=== PATIENT | male | born 1965 | race Caucasian/White ===

== ENCOUNTER → 2020-07-01 | Outpatient (CLI) | payer BC | END | disposition home or self-care (01) | LOC: RAD 11:40 | PROVIDERS: ATTEND Orthopaedic Surgery Orthopaedic Surgery of the Spine | DX: M51.17 Intervertebral disc disorders with radiculopathy, lumbosacral region (principal); M48.07 Spinal stenosis, lumbosacral region | CPT/HCPCS: 72110; 72148 ==

== ENCOUNTER → 2020-07-06 | Outpatient (CLI) | payer BC ==
[2020-07-06 14:29] LABS: ALBUMIN 3.8 g/dL (3.4-5.0); ANION GAP 6 mmol/L (5-15); CALCIUM 9.2 mg/dL (8.5-10.1); CHLORIDE 109 mmol/L (98-107)
[2020-07-06 14:32] LABS: ALANINE AMINOTRANSFERASE 74 U/L (12-78); ALKALINE PHOSPHATASE 79 U/L (45-117); BILIRUBIN,TOTAL 0.6 mg/dL (0.2-1.0); CREATININE 1.11 mg/dL (0.7-1.3); TOTAL PROTEIN 7.1 g/dL (6.4-8.2)
[2020-07-06 14:35] LABS: MICROSCOPIC NOT IND
[2020-07-06 15:04] LABS: INTERNATIONAL NORMALIZED RATIO 0.99 (0.93-1.1); PROTHROMBIN TIME 10.6 Seconds (9.6-11.5)
[2020-07-06 15:20] LABS: BASOPHILS % (AUTO) 0 % (0-1); EOSINOPHILS % (AUTO) 0 % (1-7); LYMPHOCYTES % (AUTO) 6 % (22-44); MEAN CORPUSCULAR HEMOGLOBIN 31.7 pg (27.5-34.5); MEAN CORPUSCULAR HGB CONC 34.1 g/dL (33.2-36.2); MEAN PLATELET VOLUME 9.2 fL (7.4-10.4); MONOCYTES % (AUTO) 6 % (2-9); NEUTROPHILS % (AUTO) 88 % (42-75); PLATELET COUNT 230 x10^3/uL (130-400); RED CELL DISTRIBUTION WIDTH 12.8 % (9.4-14.8)
[2020-07-06 15:53] LABS: MD SCAN
[2020-07-06 16:15] LABS: HCT (SEDRATE) 50.3 % (39.2-51.8)
== END | disposition home or self-care (01) ==
LOC: STAR 12:48
PROVIDERS: ATTEND Orthopaedic Surgery Orthopaedic Surgery of the Spine
DX: Z01.812 Encounter for preprocedural laboratory examination (principal); Z20.822 Contact with and (suspected) exposure to COVID-19
CPT/HCPCS: 71046; 80053; 80074; 81003; 85025; 85610; 85651; 85730; 87635; 87806; 93005; G0475

== ENCOUNTER 2020-07-12 09:27 | Day surgery (SDC) | payer BC ==
[~2020-07-12] VITALS: Ht 182.9 cm; Wt 82.7 kg
[2020-07-12] MEDS ORDERED: CHLORHEXIDINE 15 ML UDC MM ONE (10:00)
[2020-07-12] MEDS ORDERED: NONE PER PT (10:01)
[2020-07-12] MEDS ORDERED: BUPIVACAINE/PF 0.5% ONE (10:04)
[2020-07-12] MEDS ORDERED: LIDOCAINE/PF 1%, 30ML ONE (10:05)
[2020-07-12] MEDS ORDERED: EPINEPHRINE 1 MG/ML, 1ML ONE (10:05)
[2020-07-12 10:06] VITALS: BP 117/74
[2020-07-12] MEDS ORDERED: LACTATED RINGERS 1,000 ML IV SCH (10:30)
[2020-07-12] MEDS ORDERED: FENTANYL PF 250 MCG/5ML ONE (11:32)
[2020-07-12] MEDS ORDERED: MIDAZOLAM 1 MG/ML, 2ML ONE (11:32)
[2020-07-12] MEDS ORDERED: ROCURONIUM 10 MG/ML,10ML ONE (13:00)
[2020-07-12] MEDS ORDERED: CEFAZOLIN 1,000 MG ONE (13:00)
[2020-07-12] MEDS ORDERED: PROPOFOL 10 MG/ML, 50ML ONE (13:00)
[2020-07-12] MEDS ORDERED: PHENYLEPHRINE 10 MG/ML ONE (13:00)
[2020-07-12] MEDS ORDERED: NEOSTIGMINE 1 MG/ML, 10ML ONE (13:00)
[2020-07-12] MEDS ORDERED: ONDANSETRON 2MG/ML, 2ML ONE (13:00)
[2020-07-12] MEDS ORDERED: GLYCOPYRROLATE 0.2MG/1ML, 5ML ONE (13:00)
[2020-07-12] MEDS ORDERED: DEXAMETHASONE 4 MG/ML, 1ML ONE (13:00)
[2020-07-12] MEDS ORDERED: DIPHENHYDRAMINE 50 MG/ML, 1ML IVPush PRN (14:00)
[2020-07-12] MEDS ORDERED: METOPROLOL 1 MG/ML, 5ML IV PRN (14:00)
[2020-07-12] MEDS ORDERED: METOCLOPRAMIDE 5 MG/ML, 2ML IVPush PRN (14:00)
[2020-07-12] MEDS ORDERED: METHOCARBAMOL 1,000 MG in DEXTROSE 5% 100 ML IV PRN (14:00)
[2020-07-12] MEDS ORDERED: HALOPERIDOL 5 MG/ML IV PRN (14:00)
[2020-07-12] MEDS ORDERED: EPHEDRINE 50 MG/ML, 1ML IVPush PRN (14:00)
[2020-07-12] MEDS ORDERED: ACETAMINOPHEN 325 MG TABLET PO PRN (14:00)
[2020-07-12] MEDS ORDERED: LORazepam 2 MG/ML, 1ML IVPush PRN (14:00)
[2020-07-12] MEDS ORDERED: PROMETHAZINE 25 MG/ML, 1ML IVPush PRN (14:00)
[2020-07-12] MEDS ORDERED: FENTANYL PF 100 MCG/2ML IV PRN (14:00)
[2020-07-12] MEDS ORDERED: ONDANSETRON 2MG/ML, 2ML IVPush PRN (14:00)
[2020-07-12] MEDS ORDERED: hydrALAzine 20 MG/ML, 1ML IV PRN (14:00)
[2020-07-12] MEDS ORDERED: HYDROmorphone 1 MG/ML, 1ML INJ IVPush PRN (14:00)
[2020-07-12] MEDS ORDERED: LABETALOL 5MG/ML, 20ML IV PRN (14:00)
[2020-07-12] MEDS ORDERED: KETOROLAC 30 MG/1 ML IVPush PRN (14:00)
[2020-07-12] MEDS ORDERED: OXYcodone 5 MG/5 ML ORAL.SOL UDC PO PRN (14:00)
== END 2020-07-12 17:10 | disposition home or self-care (01) ==
LOC: OUT 09:27
PROVIDERS: ATTEND Orthopaedic Surgery Orthopaedic Surgery of the Spine
DX: M51.17 Intervertebral disc disorders with radiculopathy, lumbosacral region (principal); M48.07 Spinal stenosis, lumbosacral region; Z79.891 Long term (current) use of opiate analgesic; Z79.899 Other long term (current) drug therapy
CPT/HCPCS: 63030; 72100; 95938; 95941; J0171; J0690; J1100; J2250; J2370; J2405; J2704; J2710; J2800; J3010; J7120